=== PATIENT | male | born 1945 | race Caucasian/White ===

== ENCOUNTER → 2017-02-24 | Day surgery (SDC) | payer MEDICARE, BC ==
[~2017-02-24] MED LIST: Lactated Ringers 1,000 ML IV SCH; Propofol 200 MG/20 ML SDV IV ONE
[2017-02-24 10:27] VITALS: BP 143/84
--- NOTE | 2017-02-24 13:54 | OR ---
DATE OF OPERATION: 02/24/2017 PREOPERATIVE DIAGNOSIS: HISTORY OF COLON CANCER. POSTOPERATIVE DIAGNOSIS: HISTORY OF COLON CANCER. SURGEON: Marco Harris MD PROCEDURE: FULL-LENGTH COLONOSCOPY. ANESTHESIA: REALTIME REPORTER. COMPLICATIONS: None. SPECIMEN: None. FINDINGS: Normal full length colonoscopy. RECOMMENDATIONS: Followup colonoscopy in 2 years. INDICATIONS: The patient is in need of a 1-year followup colonoscopy after having colon resection for CA. DESCRIPTION OF PROCEDURE: The patient was prepped and draped, placed in the left lateral decubitus position. A lubricated Olympus colonoscope was inserted and easily advanced to the cecum. Direct visualization of the ileocecal valve and appendiceal orifice was accomplished. We were able to easily intubate into the ileocecal valve and see the terminal ileum. Upon withdrawal, throughout the entire length of the colon, I could find no signs of any polyps, masses, ulcerations, or bleeding sites. No vascular abnormalities or signs of colitis. There were no diverticula. The prior resection site appeared benign. I could find no signs of any recurrence. Rectal vault was unremarkable. Retroflexion of scope in the rectum showed no perianal lesions. Air was suctioned. Scope removed without complication. RAJ/CORBIN /[id number]
== END ==
LOC: CC.SDS 08:40
PROVIDERS: ATTEND Family Medicine
DX: Z12.11 Encounter for screening for malignant neoplasm of colon (principal); N40.0 Benign prostatic hyperplasia without lower urinary tract symptoms; E78.5 Hyperlipidemia, unspecified; Z88.8 Allergy status to other drugs, medicaments and biological substances; Z85.038 Personal history of other malignant neoplasm of large intestine; Z79.82 Long term (current) use of aspirin; Z79.899 Other long term (current) drug therapy; Z72.0 Tobacco use
CPT/HCPCS: 81001; G0105; J2704; J7120; 00812

== ENCOUNTER → 2018-03-02 | Day surgery (SDC) | payer MEDICARE, BC ==
[2018-03-02 09:29] VITALS: BP 139/81
--- NOTE | 2018-03-02 11:27 | OR ---
DATE OF OPERATION: 03/02/2018 PREOPERATIVE DIAGNOSIS: HISTORY OF COLON CANCER. POSTOPERATIVE DIAGNOSIS: HISTORY OF COLON CANCER. SURGEON: Marco Harris MD PROCEDURE: FULL-LENGTH COLONOSCOPY. ANESTHESIA: SLACK COOPER. COMPLICATIONS: None. SPECIMEN: None. FINDINGS: Normal full-length colonoscopy status post partial colectomy. RECOMMENDATIONS: Followup colonoscopy in 1 year. INDICATIONS: The patient has a history of colon cancer. He is 2 years status post resection. He is due for a yearly scope at this time. DESCRIPTION OF PROCEDURE: The patient was prepped and draped, placed in the left lateral decubitus position. A lubricated Olympus colonoscope was inserted and easily advanced to the cecum. We were able to visualize the ileocecal valve and appendiceal orifice. The bowel prep was adequate. Upon withdrawal of the scope throughout the entire length of the remaining colon, the patient had no signs of polyps, mass, ulceration, or bleeding sites. No vascular abnormalities or signs of colitis. No signs of any cancer recurrence, polyps, mass, or otherwise. Retroflexion of the scope in the rectum showed no anal lesions. Air was suctioned, scope removed without complication. RAJ/CORBIN /[id number]
== END ==
LOC: CC.SDS 07:40
PROVIDERS: ATTEND Family Medicine
DX: Z12.11 Encounter for screening for malignant neoplasm of colon (principal); M19.90 Unspecified osteoarthritis, unspecified site; N40.0 Benign prostatic hyperplasia without lower urinary tract symptoms; E78.5 Hyperlipidemia, unspecified; Z85.038 Personal history of other malignant neoplasm of large intestine; Z98.890 Other specified postprocedural states
CPT/HCPCS: J2704; J7120

== ENCOUNTER → 2019-03-22 | Day surgery (SDC) | payer MEDICARE, BC ==
[2019-03-22 10:29] VITALS: BP 152/84; PULSE 63
--- NOTE | 2019-03-23 11:44 | OR ---
DATE OF OPERATION: 03/22/2019 PREOPERATIVE DIAGNOSIS: HISTORY OF COLON CANCER. POSTOPERATIVE DIAGNOSIS: HISTORY OF COLON CANCER. SURGEON: Marco Harris MD PROCEDURE: DIAGNOSTIC COLONOSCOPY WITH POLYP REMOVAL X1, FORCEPS BIOPSY X2. ANESTHESIA: MAC. COMPLICATIONS: None. SPECIMEN: 1. Sessile polyp, likely hyperplastic, splenic flexure. 2. Biopsies x2, splenic flexure. FINDINGS: 1. Full-length colonoscopy. 2. No signs of cancer recurrence. 3. Small hyperplastic polyp, splenic flexure. 4. Submucosal lymphoid aggregates. RECOMMENDATIONS: Followup colonoscopy at this point in 2 years pending path report. INDICATIONS: The patient has a prior history of colon cancer. He has had I believe yearly colonoscopies, this will be #4. DESCRIPTION OF PROCEDURE: The patient was prepped and draped, placed in the left lateral decubitus position. A lubricated Olympus colonoscope was inserted and easily advanced to the cecum. Direct visualization of the ileocecal valve and appendiceal orifice was accomplished. The bowel prep was excellent. Upon withdrawal of the scope, the cecum, ascending, and most of the transverse colon were completely benign. Right around the splenic flexure, the patient did have 1 small flat hyperplastic- appearing polyp removed in its entirety with a forceps. In and around his splenic region, there was some appearance of some submucosal lymphoid aggregates, very small and classic in appearance. We did do biopsies of 2 of these areas. The rest of the left colon including the sigmoid and rectosigmoid region were completely unremarkable. The rectal vault appeared benign. Retroflexion showed no anal lesions. Air was suctioned, scope removed without complication. RAJ/CORBIN /[id number]
== END ==
LOC: CC.SDS 08:10
PROVIDERS: ATTEND Family Medicine
DX: Z08 Encounter for follow-up examination after completed treatment for malignant neoplasm (principal); K63.5 Polyp of colon; N40.0 Benign prostatic hyperplasia without lower urinary tract symptoms; E78.5 Hyperlipidemia, unspecified; M19.90 Unspecified osteoarthritis, unspecified site; Z85.038 Personal history of other malignant neoplasm of large intestine; Z80.0 Family history of malignant neoplasm of digestive organs; Z88.8 Allergy status to other drugs, medicaments and biological substances; Z79.899 Other long term (current) drug therapy; Z79.82 Long term (current) use of aspirin; Z79.51 Long term (current) use of inhaled steroids; Z90.49 Acquired absence of other specified parts of digestive tract
CPT/HCPCS: 00811; 45380; J2704; J7120

== ENCOUNTER → 2021-03-26 | Day surgery (SDC) | payer MEDICARE, BC ==
[~2021-03-26] MED LIST changes: +Ketamine 200 MG/20 ML MDV ONE; +Phenylephrine 1% 10 MG/ML SDV ONE; -Propofol 200 MG/20 ML SDV IV ONE; +Propofol 200 MG/20 ML SDV ONE; +fentaNYL 100 MCG/2 ML SDV ONE
[2021-03-26 09:23] VITALS: BP 145/76; PULSE 62
== END ==
LOC: CC.SDS 07:13
PROVIDERS: ATTEND Family Medicine
DX: Z12.11 Encounter for screening for malignant neoplasm of colon (principal); D12.3 Benign neoplasm of transverse colon; N40.0 Benign prostatic hyperplasia without lower urinary tract symptoms; R73.09 Other abnormal glucose; K21.9 Gastro-esophageal reflux disease without esophagitis; E78.5 Hyperlipidemia, unspecified; E03.9 Hypothyroidism, unspecified; Z79.82 Long term (current) use of aspirin; Z79.899 Other long term (current) drug therapy; Z90.49 Acquired absence of other specified parts of digestive tract; Z98.890 Other specified postprocedural states; Z79.890 Hormone replacement therapy
CPT/HCPCS: 88305; J2370; J2704; J3010; J7120

== ENCOUNTER 2024-04-05 08:48 | Day surgery (SDC) | payer MEDICARE, BC ==
[2024-04-05] MEDS: Lactated Ringers 1,000 ML IV SCH (09:26)
[2024-04-05] MEDS ORDERED: Flumazenil 0.1 MG/ML 10 ML MDV ONE (09:37)
[2024-04-05] MEDS ORDERED: Propofol 200 MG/20 ML SDV ONE (09:37)
[2024-04-05] MEDS ORDERED: Ondansetron 4 MG/2 ML SDV ONE (09:37)
[2024-04-05] MEDS ORDERED: Midazolam 1 MG/ML 2 ML SDV ONE (09:37)
[2024-04-05] MEDS ORDERED: Ketamine 200 MG/20 ML MDV ONE (09:37)
[2024-04-05] MEDS ORDERED: ePHEDrine 50 MG/ML SDV ONE (09:37)
[2024-04-05] MEDS ORDERED: fentaNYL 50 MCG/ML SDV ONE (09:37)
[2024-04-05 13:28] VITALS: BP 138/75; PULSE 67
== END 2024-04-05 11:05 | disposition home or self-care (01) ==
LOC: CC.SDS 08:48
PROVIDERS: ATTEND Family Medicine
DX: Z12.11 Encounter for screening for malignant neoplasm of colon (principal); D12.2 Benign neoplasm of ascending colon; D12.3 Benign neoplasm of transverse colon; Z86.0100 Personal history of colon polyps, unspecified; E11.9 Type 2 diabetes mellitus without complications; K21.9 Gastro-esophageal reflux disease without esophagitis; E03.9 Hypothyroidism, unspecified; N40.0 Benign prostatic hyperplasia without lower urinary tract symptoms; E78.5 Hyperlipidemia, unspecified; Z79.890 Hormone replacement therapy; Z79.82 Long term (current) use of aspirin; Z79.899 Other long term (current) drug therapy
CPT/HCPCS: 00811; 45380; 45385; 88305; 99100; J2250; J2405; J2704; J3010; J3490; J7120